=== PATIENT | female | born 1970 | race Caucasian/White ===

== ENCOUNTER 2018-03-10 14:05 | Emergency (ER) | payer BC ==
[2018-03-10] MEDS ORDERED: ONDANSETRON 4 MG/2 ML VIAL ONE (14:43)
[2018-03-10] MEDS ORDERED: ASPIRIN 81 MG CHEWABLE TABLET ONE (14:43)
[2018-03-10 14:46] LABS: Absolute Lymphocytes (CBC) 2.4 K/uL (0.7-4.9); Absolute Monocytes 0.4 K/uL (0.1-1.3); Absolute Neutrophil 4.7 K/uL (1.8-8.0); Basophils % 0.8 % (0-1.3); Eosinophils % 0.9 % (0-4.4); Hematocrit 38.4 % (36.0-45.0); Lymphocytes % 31.7 % (15.3-44.8); MCH 31.1 pg (27.0-35.0); MCV 90.6 fL (80-100); MPV 8.7 fL (7.6-11.3); Monocytes % 5.7 % (3.3-12.3); RBC Red Blood Cell Count 4.24 M/uL (3.86-4.86)
[2018-03-10 14:51] LABS: Protime INR 1.05
[2018-03-10 15:20] LABS: Urine Blood NEGATIVE (NEG); Urine Glucose NEGATIVE (NEG); Urine Protein NEGATIVE (NEG); Urine Specific Gravity 1.025 (1.005-1.030); Urine pH 6.5 (5.0-7.0)
[2018-03-10] MEDS ORDERED: NITROGLYCERIN 0.4 MG/TAB SL ONE (16:01)
[2018-03-10 16:03] LABS: ALT/SGPT 26 U/L (12-78); AST/SGOT 16 U/L (15-37); Albumin 3.9 g/dL (3.4-5.0); Alkaline Phosphatase 69 U/L (45-117); BUN Blood Urea Nitrogen 9 mg/dL (7-18); Bicarbonate 29 mmol/L (21-32); Bilirubin Direct 0.1 mg/dL (0-0.2); Bilirubin Total 0.4 mg/dL (0.2-1.0); CKMB Creatine Kinase MB < 1.0 ng/mL (0.3-3.6); Creatine Phosphokinase 54 U/L (26-192); Glucose Level 122 mg/dL (74-106); Magnesium 2.4 mg/dL (1.8-2.4); NT PRO-BNP 84 pg/mL (<125); Potassium 3.6 mmol/L (3.5-5.1); Protein, Total 7.2 g/dL (6.4-8.2); Sodium Level 143 mmol/L (136-145)
--- NOTE | 2018-03-10 16:21 | ER ---
Nurse's Notes [facility] Name: France West Age: 47 yrs Sex: Female : 1970 Arrival Date: 03/10/2018 Time: 14:06 Bed 17 Private MD: None, None Diagnosis: Chest pain, unspecified Presentation: 03/10 14:07 Presenting complaint: Patient states: pain to upper back and around chest that is ss described as tightness with shortness of breath and nausea that began 2 hours ago. Daughter called 911, who checked patient out, but patient refused patient transport. Transition of care: patient was not received from another setting of care. Onset of symptoms was March 10, 2018. Risk Assessment: Do you want to hurt yourself or someone else? Patient reports no desire to harm self or others. Initial Sepsis Screen: Does the patient meet any 2 criteria? No. Patient's initial sepsis screen is negative. Does the patient have a suspected source of infection? No. Patient's initial sepsis screen is negative. Care prior to arrival: None. 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 - Social history:: Smoking status: Patient/guardian denies using tobacco. - Ebola Screening: : Patient denies exposure to infectious person Patient denies travel to an Ebola-affected area in the 21 days before illness onset. Screenin:50 Abuse screen: Denies threats or abuse. Nutritional screening: No deficits noted. em Tuberculosis screening: No symptoms or risk factors identified. Fall Risk None identified. Assessment: 14:18 General: Appears uncomfortable, Behavior is calm, cooperative. Pain: Complains of pain em in thoracic area Pain radiates to left lateral anterior chest and right lateral anterior chest Quality of pain is described as sharp, Pain began 2 hours ago. Neuro: Level of Consciousness is awake, alert, obeys commands, Oriented to person, place, time, situation. Cardiovascular: Reports chest pain, nausea, shortness of breath, Denies vomiting, Capillary refill < 3 seconds Patient's skin is warm and dry. Chest pain began 3 hours prior to arrival. Respiratory: Airway is patent Respiratory effort is even, unlabored, Respiratory pattern is regular, symmetrical, Breath sounds are clear bilaterally. GI: Abdomen is flat. : No signs and/or symptoms were reported regarding the genitourinary system. EENT: No signs and/or symptoms were reported regarding the EENT system. Derm: Skin is intact, Skin is pink, warm \T\ dry. Musculoskeletal: Range of motion: intact in all extremities. 14:25 General: The previous assessment is accurate, call light remains within reach. ss 15:18 Reassessment: Patient appears in no apparent distress at this time. Patient and/or em family updated on plan of care and expected duration. Pain level reassessed. Patient is alert, oriented x 3, equal unlabored respirations, skin warm/dry/pink. pain and nausea is improved Patient states feeling better. 15:50 Reassessment: Patient appears in no apparent distress at this time. Patient and/or em family updated on plan of care and expected duration. Pain level reassessed. Patient is alert, oriented x 3, equal unlabored respirations, skin warm/dry/pink. rates pain 2/10, KEIRA Correia at bedside, received verbal order for nitro per KEIRA Correia Patient states feeling better. 16:15 Reassessment: Patient appears in no apparent distress at this time. reports relief em after 1 0.4 mg nitro, pressure unable to tolerate 2nd, KEIRA Croreia notified, will continue to monitor. Vital Signs: 14:11 BP 115 / 71; Pulse 84; Resp 16; Temp 97.6(TE); Pulse Ox 100% on R/A; Weight 63.5 kg; ss Height 5 ft. 3 in. (160.02 cm); Pain 6/10; 15:18 BP 109 / 74; Pulse 74; Resp 16; Pulse Ox 99% on R/A; Pain 2/10; em 15:56 BP 108 / 82; Pulse 65; Resp 18; Pulse Ox 99% on R/A; Pain 2/10; em 16:00 BP 109 / 78; Pulse 65; em 16:05 BP 95 / 75; Pulse 75; Pain 1/10; em 16:10 BP 102 / 73; Pulse 73; em 17:00 BP 105 / 86; Pulse 62; Resp 16; Pulse Ox 100% on R/A; em 17:45 BP 112 / 77; Pulse 58; Resp 16; Pulse Ox 100% on R/A; Pain 0/10; em 14:11 Body Mass Index 24.80 (63.50 kg, 160.02 cm) ED Course: 14:06 Patient arrived in ED. sb2 14:06 None, None is Private Physician. sb2 14:09 Triage completed. ss 14:11 Arm band placed on right wrist. ss 14:17 Masood Andrews NP [facility]. pm1 14:17 Emerson Rivas MD is Attending Physician. pm1 14:28 Ayaan Can LVN is Primary Nurse. em 14:32 Patient has correct armband on for positive identification. Placed in gown. Bed in low em position. Call light in reach. pharmacy picking technician on. Pulse ox on. NIBP on. Warm blanket given. 14:40 EKG done, by ED staff, reviewed by Masood Andrews NP. dh3 14:45 Missed attempt(s): 22 gauge in right forearm. Bleeding controlled, band aid applied, dh3 catheter tip intact. 14:48 Inserted saline lock: 22 gauge in right hand, using aseptic technique. dh3 14:50 No provider procedures requiring assistance completed. em 16:09 XRAY Chest (1 view) In Process Unspecified. EDMS 16:20 Elvia Mathis MD is Hospitalizing Provider. pm1 17:19 Mejia Moreno MD is Referral Physician. pm1 17:45 IV discontinued, intact, bleeding controlled, No redness/swelling at site. Pressure em dressing applied. Administered Medications: 13:58 Drug: Nitroglycerin 0.4 mg Route: Sublingual; em 17:45 Follow up: Response: No adverse reaction; Pain is decreased em 14:43 Drug: Aspirin Chewable Tablet 324 mg Route: PO; em 15:52 Follow up: Response: No adverse reaction em 14:55 Drug: Zofran 4 mg Route: IVP; Site: right hand; ss 15:52 Follow up: Response: No adverse reaction; Nausea is decreased em Outcome: 16:20 Decision to Hospitalize by Provider. pm1 17:20 Discharge ordered by . pm1 17:46 Discharged to home ambulatory. em 17:46 Condition: good 17:46 Discharge instructions given to patient, Instructed on discharge instructions, follow up and referral plans. Demonstrated understanding of instructions, follow-up care. 17:47 Patient left the ED. em Signatures: Dispatcher [employer] EDAyaan Quach, FILM CRITIC FILM CRITIC em Mitali Fiore RN RN ss Masood Andrews NP AUTOMATION CONTROLS SPECIALIST pm1 Mary Stratton 3 Yumiko Polk sb2 Corrections: (The following items were deleted from the chart) 16:26 15:50 Reassessment: Patient appears in no apparent distress at this time. Patient em and/or family updated on plan of care and expected duration. Pain level reassessed. Patient is alert, oriented x 3, equal unlabored respirations, skin warm/dry/pink. rates pain 2/10, KEIRA Correia at bedside Patient states feeling better. em 17:33 14:07 Presenting complaint: Patient states: pain to upper back and around chest that is ss described as tightness with shortness of breath and nausea that began 2 hours ago. Pt reports pain began approx 2 hours ago. Daughter called 911, who checked patient out, but patient refused patient transport. ss
--- NOTE | 2018-03-10 16:21 | EDPHYS ---
Physician Documentation [facility] Name: France West Age: 47 yrs Sex: Female : 1970 Arrival Date: 03/10/2018 Time: 14:06 Bed 17 Private MD: None, None ED Physician Emerson Rivas HPI: 03/10 15:00 This 47 yrs old Female presents to ER via Wheelchair with complaints of chest pm1 pain. 15:00 The patient or guardian reports chest pain that is located primarily in the substernal pm1 area. Onset: today, at 12:30. The pain radiates to Radiation from mid scapula to chest. Associated signs and symptoms: Pertinent positives: nausea, shortness of breath, Pertinent negatives: abdominal pain, cough, dizziness, lower extremity swelling. The chest pain is described as a pressure. Duration: The patient or guardian reports a single episode, that is still ongoing, but improving. Severity of pain: in the emergency department the pain is a 5 / 10. EMS care prior to arrival includes: EMS was contacted by daughter but the patient refused transfer after the EMS evaluated her. Patient came by private vehicle. The patient has not recently seen a physician, and does not have an established primary care provider. 16:13 significant family history: Father at 43 [address] [place] and sister with 2 stents, she is pm1 4 years older than patient. 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 - Social history:: Smoking status: Patient/guardian denies using tobacco. - Ebola Screening: : Patient denies exposure to infectious person Patient denies travel to an Ebola-affected area in the 21 days before illness onset. ROS: 16:30 Constitutional: Negative for fever, chills, and weight loss, Eyes: Negative for injury, pm1 pain, redness, and discharge, ENT: Negative for injury, pain, and discharge, Neck: Negative for injury, pain, and swelling. 16:30 Abdomen/GI: Negative for abdominal pain, nausea, vomiting, diarrhea, and constipation, : Negative for injury, bleeding, discharge, and swelling. 16:30 MS/Extremity: Negative for injury and deformity, Skin: Negative for injury, rash, and discoloration, Neuro: Negative for headache, weakness, numbness, tingling, and seizure. 16:30 Cardiovascular: Positive for chest pain, Negative for edema, orthopnea, palpitations. 16:30 Respiratory: Positive for shortness of breath, Negative for cough, dyspnea on exertion, sputum production, wheezing. 16:30 Back: Positive for of the thoracic area, Negative for injury or acute deformity, decreased range of motion, pain with movement. Exam: 16:30 Constitutional: This is a well developed, well nourished patient who is awake, alert, pm1 and in no acute distress. Head/Face: Normocephalic, atraumatic. Eyes: Pupils equal round and reactive to light, extra-ocular motions intact. Lids and lashes normal. Conjunctiva and sclera are non-icteric and not injected. Cornea within normal limits. Periorbital areas with no swelling, redness, or edema. ENT: Nares patent. No nasal discharge, no septal abnormalities noted. Tympanic membranes are normal and external auditory canals are clear. Oropharynx with no redness, swelling, or masses, exudates, or evidence of obstruction, uvula midline. Mucous membranes moist. Neck: Trachea midline, no thyromegaly or masses palpated, and no cervical lymphadenopathy. Supple, full range of motion without nuchal rigidity, or vertebral point tenderness. No Meningismus. Chest/axilla: Normal chest wall appearance and motion. Nontender with no deformity. No lesions are appreciated. Cardiovascular: Regular rate and rhythm with a normal S1 and S2. No gallops, murmurs, or rubs. Normal PMI, no JVD. No pulse deficits. Respiratory: Lungs have equal breath sounds bilaterally, clear to auscultation and percussion. No rales, rhonchi or wheezes noted. No increased work of breathing, no retractions or nasal flaring. Abdomen/GI: Soft, non-tender, with normal bowel sounds. No distension or tympany. No guarding or rebound. No evidence of tenderness throughout. Back: No spinal tenderness. No costovertebral tenderness. Full range of motion. Skin: Warm, dry with normal turgor. Normal color with no rashes, no lesions, and no evidence of cellulitis. MS/ Extremity: Pulses equal, no cyanosis. Neurovascular intact. Full, normal range of motion. 16:30 Neuro: Orientation: is normal, Motor: is normal, moves all fours, Sensation: is normal, no obvious gross deficits. Vital Signs: 14:11 BP 115 / 71; Pulse 84; Resp 16; Temp 97.6(TE); Pulse Ox 100% on R/A; Weight 63.5 kg; ss Height 5 ft. 3 in. (160.02 cm); Pain 6/10; 15:18 BP 109 / 74; Pulse 74; Resp 16; Pulse Ox 99% on R/A; Pain 2/10; em 15:56 BP 108 / 82; Pulse 65; Resp 18; Pulse Ox 99% on R/A; Pain 2/10; em 16:00 BP 109 / 78; Pulse 65; em 16:05 BP 95 / 75; Pulse 75; Pain 1/10; em 16:10 BP 102 / 73; Pulse 73; em 17:00 BP 105 / 86; Pulse 62; Resp 16; Pulse Ox 100% on R/A; em 17:45 BP 112 / 77; Pulse 58; Resp 16; Pulse Ox 100% on R/A; Pain 0/10; em 14:11 Body Mass Index 24.80 (63.50 kg, 160.02 cm) ss MDM: 14:25 Patient medically screened. pm1 16:19 Data reviewed: vital signs. Data interpreted: Pulse oximetry: on room air is 99 %. pm1 Interpretation: normal. Counseling: I had a detailed discussion with the patient and/or guardian regarding: the historical points, exam findings, and any diagnostic results supporting the discharge/admit diagnosis, lab results, radiology results, the need for further work-up and treatment in the hospital. 16:20 ED course: Chest pain improved with nitro given in the ER. Pain currently between 0-1 pm1 per patient. Patient without any other current symptoms. 16:20 The patient was given aspirin in the Emergency Department. pm1 17:05 Physician consultation: Elvia Mathis MD in the emergency department to see patient at pm1 16:45, Discussed patient's HPI and cardiac workup. The patient's HEART Score = 2 and TALITA = 0. Dr. Mathis called Dr. Melvin and set up an appointment for echo and stress test tomorrow at his office at 0830. 03/10 14:29 Order name: Basic Metabolic Panel; Complete Time: 16:05 pm1 03/10 14:29 Order name: CBC with Diff; Complete Time: 15:47 pm1 03/10 14:29 Order name: Ckmb; Complete Time: 16:05 pm1 03/10 14:29 Order name: CPK; Complete Time: 16:05 pm1 03/10 14:29 Order name: LFT's; Complete Time: 16:05 pm1 03/10 14:29 Order name: Magnesium; Complete Time: 16:05 pm1 03/10 14:29 Order name: NT PRO-BNP; Complete Time: 16:05 pm1 03/10 14:29 Order name: PT-INR; Complete Time: 15:47 pm1 03/10 14:29 Order name: Ptt, Activated; Complete Time: 15:47 pm1 03/10 14:29 Order name: Troponin (emerg Dept Use Only); Complete Time: 15:47 pm1 03/10 14:29 Order name: XRAY Chest (1 view); Complete Time: 16:51 pm1 03/10 15:15 Order name: Urine Dipstick--Ancillary (enter results); Complete Time: 15:47 eb 03/10 14:29 Order name: EKG; Complete Time: 14:30 pm1 03/10 14:29 Order name: Cardiac monitoring; Complete Time: 14:48 pm1 03/10 14:29 Order name: EKG - Nurse/Tech; Complete Time: 14:48 pm1 03/10 14:29 Order name: IV Saline Lock; Complete Time: 14:48 pm1 03/10 14:29 Order name: Labs collected and sent; Complete Time: 14:48 pm1 03/10 14:29 Order name: O2 Per Protocol; Complete Time: 14:48 pm1 03/10 14:29 Order name: O2 Sat Monitoring; Complete Time: 14:48 pm1 03/10 14:29 Order name: Urine Dipstick-Ancillary (obtain specimen); Complete Time: 14:51 pm1 Administered Medications: 13:58 Drug: Nitroglycerin 0.4 mg Route: Sublingual; em 17:45 Follow up: Response: No adverse reaction; Pain is decreased em 14:43 Drug: Aspirin Chewable Tablet 324 mg Route: PO; em 15:52 Follow up: Response: No adverse reaction em 14:55 Drug: Zofran 4 mg Route: IVP; Site: right hand; ss 15:52 Follow up: Response: No adverse reaction; Nausea is decreased em Disposition: 03/10/18 17:20 Discharged to Home. Impression: Chest pain, unspecified. - Condition is Stable. - Discharge Instructions: Nonspecific Chest Pain. - Family Work Release, Medication Reconciliation Form, Thank You Letter form. - Follow up: Mejia Moreno MD; When: 03/11/2018 at 8:30 AM ; Reason: Recheck today's complaints, Continuance of care, Re-evaluation by your physician. - Problem is new. - Symptoms have improved. Addendum: 03/11/2018 21:26 Co-signature as Attending Physician, Emerson Rivas MD. m a2 Signatures: Dispatcher [employer] EDMS Ayaan Can, AERIAL SURVEY TECHNICIAN AERIAL SURVEY TECHNICIAN em Mitali Fiore, BRANDON RN Masood Sousa, DEV OPS ENGINEER DEV OPS ENGINEER pm1 Emerson Rivas MD MD va2 Corrections: (The following items were deleted from the chart) 03/10 14:46 14:29 Urine Test ordered. pm1 pm1 17:19 16:20 Hospitalization Ordered by Elvia Mathis MD for Observation. Preliminary pm1 diagnosis is Chest pain, unspecified. Bed requested for Telemetry/MedSurg (observation). Status is Observation. Condition is Stable. Problem is new. Symptoms have improved. UTI on Admission? No. pm1 17:47 17:20 03/10/2018 17:20 Discharged to Home. Impression: Chest pain, unspecified. em Condition is Stable. Forms are Medication Reconciliation Form, Thank You Letter, Antibiotic Education, Prescription Opioid Use. Follow up: Mejia Moreno; When: 03/11/2018 at 8:30 AM ; Reason: Recheck today's complaints, Continuance of care, Re-evaluation by your physician. Problem is new. Symptoms have improved. pm1
--- NOTE | 2018-03-10 16:44 | P.CNS ---
Date of Consult: 03/10/18 HPI: This is a 39-year-old female with no significant past medical history who presented to the ED complaining of having some lower back pain that was radiating to her chest along with some chest tightness and shortness of breath. Patient stated that her symptoms started about 2 hr ago and got progressively worse and thus he decided to come to the ER after her daughter called 911. Patient initially was evaluated in the ER for ACS rule out. Troponin x1 was negative EKG was unremarkable with sinus rhythm. The patient only risk factor is positive family history for her dad of massive heart attack at 41 and her sister has is 2 stents of who is at the age of 52. Patient denies having any chest pain her say nausea or vomiting abdominal pain or any other associated symptoms. Lab: 03/10/18 15:15: Urine pH 6.5, Ur Specific [place] 1.025, Urine Ketones Negative , Urine Blood Negative, Urine Nitrite Negative, Ur Leukocyte Esterase Negative, Urine Glucose Negative, Urine Total Protein Negative 03/10/18 14:30: Rapid Troponin I < 0.02 03/10/18 14:30: PT 12.4, INR 1.05, APTT 18.2 L 03/10/18 14:30: WBC 7.7, RBC 4.24, Hgb 13.2, Hct 38.4, MCV 90.6, MCH 31.1, MCHC 34.3, RDW 14.1, Plt Count 252, MPV 8.7, Neutrophils % 60.9, Lymphocytes % 31.7, Monocytes % 5.7, Eosinophils % 0.9, Basophils % 0.8, Absolute Neutrophils 4.7, Absolute Lymphocytes 2.4, Absolute Monocytes 0.4, Absolute Eosinophils 0.1, Absolute Basophils 0.1 03/10/18 14:30: Sodium 143, Potassium 3.6, Chloride 109 H, Carbon Dioxide 29, BUN 9, Creatinine 0.70, Estimated GFR 89 L, Glucose 122 H, Calcium 8.6, Magnesium 2.4, Total Bilirubin 0.4, Direct Bilirubin 0.1, AST 16, ALT 26, Alkaline Phosphatase 69, Creatine Kinase 54, CK-MB (CK-2) < 1.0, NT-Pro-B Natriuret Pep 84, Serum Total Protein 7.2, Albumin 3.9, Globulin 3.3, Albumin/ Globulin Ratio 1.2 Phyiscal Exam: Vitals: Stable Gen: NAD, AAOx 2 CVS: RRR, No murmer Lungs: CTABL, no W/R/R EXT: + pulse Assessment/Plan: 47-year-old female presenting to the ED for chest tightness and shortness of breath. Most likely associated with reflux versus reactive airway disease. Patient has a TALITA score risk of 0-1. Cardiology was contacted from the ER recommends the patient can be followed up outpatient for an outpatient stress test and echocardiogram 1st thing tomorrow morning in the office. Patient will be making an appointment with the boiler reliner and will see them 830 in the morning.
--- NOTE | 2018-03-10 16:45 | RAD REPORT ---
EXAM DESCRIPTION: Malika Single View03/10/2018 4:10 pm CLINICAL HISTORY: Chest pain COMPARISON: none FINDINGS: The lungs appear clear of acute infiltrate. The heart is normal size IMPRESSION: No acute abnormalities displayed
--- NOTE | 2018-03-11 08:57 | EKG ---
Test Date: 2018-03-10 Test Time: 14:28:13 Production Utility Worker: SARTHAK MEASUREMENT RESULTS: Intervals: Rate: 65 CA: 170 QRSD: 100 QT: 414 QTc: 430 [place]: P: 56 CA: 170 QRS: 30 T: 47 INTERPRETIVE STATEMENTS: Normal sinus rhythm Incomplete right bundle branch block Borderline ECG No previous ECG available for comparison Electronically Signed On 03-11-18 08:56:38 CDT by Elias Duran
== END 2018-03-10 17:47 | disposition home or self-care (01) ==
LOC: ER 14:05
DX: R07.9 Chest pain, unspecified (principal); Z85.42 Personal history of malignant neoplasm of other parts of uterus
CPT/HCPCS: 36415; 71045; 80048; 80076; 81003; 82550; 82553; 83735; 83880; 84484; 85025; 85610; 85730; 93005; 96374; 99284; J2405